=== PATIENT | male | born 1965 | race African-American/Black ===

== ENCOUNTER 2017-01-04 12:20 | Emergency (ER) | payer MEDICARE ==
[~2017-01-04] VITALS: Ht 180.3 cm; Wt 74.8 kg
[~2017-01-04 12:20] MED LIST: LORTAB 5/500 TA1 TA1 PO
== END 2017-01-04 15:05 | disposition home or self-care (01) ==
LOC: CED 12:20 → CFTX 12:20
DX: J02.9 Acute pharyngitis, unspecified (principal); F17.210 Nicotine dependence, cigarettes, uncomplicated
CPT/HCPCS: 87651; 96372; 99283; J0561